=== PATIENT | female | born 1970 | race Hispanic/Latino ===

== ENCOUNTER → 2024-10-13 | Day surgery (SDC) | payer OTHER ==
[~2024-10-13] MED LIST: ACCOLATE20 MG PO; FAMOTIDINE20 MG PO; FENTANYL CITRATE/PF 100MCG/2 ML INJ ONE; GABAPENTIN300 MG PO; GLUCAGON FOR INJ 1 MG VIAL ONE; HYDRALAZINE HCL 20 MG/ML VIAL ONE; HYOSCYAMINE SULFATE 0.5 MG/ML INJ ONE; LIDOCAINE HCL 2% LOCAL INJ 5 ML SDV VIAL INJ ONE; MECLIZINE HCL12.5 MG PO; METOCLOPRAMIDE HCL 10 MG/2ML VIAL ONE; MIDAZOLAM HCL 2 MG/2 ML VIAL ONE; PROPOFOL IV EMULSION 10 MG/ML 20 ML VIAL ONE; PROPOFOL IV EMULSION 50 ML IV ONE; ULTRAM 50MG50 MG PO; VENTOLIN HFA18 GM INH; VIT D PO
[2024-10-13] MEDS: LACTATED RINGER'S 1,000 ML ONE (07:07)
[2024-10-13 09:40] VITALS: BP 133/83; PULSE 92; RESP 17; TEMP 98.4; O2SAT 96
== END | disposition home or self-care (01) ==
LOC: OR 06:21 → EDSEX 07:30
PROVIDERS: ATTEND Internal Medicine Gastroenterology
DX: K20.90 Esophagitis, unspecified without bleeding (principal); K22.2 Esophageal obstruction; K44.9 Diaphragmatic hernia without obstruction or gangrene; K29.70 Gastritis, unspecified, without bleeding; K63.5 Polyp of colon; K57.30 Diverticulosis of large intestine without perforation or abscess without bleeding; K64.8 Other hemorrhoids; J45.909 Unspecified asthma, uncomplicated; E66.01 Morbid (severe) obesity due to excess calories; Z01.810 Encounter for preprocedural cardiovascular examination
CPT/HCPCS: 43239; 43450; 45385; 93005; J0360; J1610; J1980; J2003; J2250; J2470; J2704 ×2; J2765; J3010; J7121; 45378

== ENCOUNTER 2024-11-07 17:13 | Emergency (ER) | payer OTHER ==
[~2024-11-07] VITALS: Ht 157.5 cm; Wt 100.7 kg
[~2024-11-07 17:13] MED LIST changes: -FENTANYL CITRATE/PF 100MCG/2 ML INJ ONE; -GLUCAGON FOR INJ 1 MG VIAL ONE; -HYDRALAZINE HCL 20 MG/ML VIAL ONE; -HYOSCYAMINE SULFATE 0.5 MG/ML INJ ONE; -LIDOCAINE HCL 2% LOCAL INJ 5 ML SDV VIAL INJ ONE; -METOCLOPRAMIDE HCL 10 MG/2ML VIAL ONE; -MIDAZOLAM HCL 2 MG/2 ML VIAL ONE; -PROPOFOL IV EMULSION 10 MG/ML 20 ML VIAL ONE; -PROPOFOL IV EMULSION 50 ML IV ONE
[2024-11-07 18:53] VITALS: PULSE 88; RESP 19; TEMP 98.5
[2024-11-07 19:12] LABS: BASOPHILS % 0.5 % (0.0-1.0); EOSINOPHILS % 2.8 % (0.0-6.0); LYMPHOCYTES % 30.9 % (18.0-39.1); MONOCYTES % 6.3 % (4.4-11.3); NEUTROPHILS % 59.4 % (38.7-80.0); RED CELL DISTRIBUTION WIDTH 14.1 % (11.7-14.4)
[2024-11-07] MEDS ORDERED: ONDANSETRON HCL INJ 2MG/ML 2ML 2 MG/ML VIAL IV PRN (19:15)
[2024-11-07 19:28] LABS: EST GLOMERULAR FILTRATION RATE 88.0 ML/MIN (>=60)
[2024-11-07] MEDS: SODIUM CHLORIDE 0.9% 1000ML 1,000 ML IV STA (19:47)
[2024-11-07] MEDS: DICYCLOMINE HCL 20 MG/2 ML VIAL IM ONE (19:48)
[2024-11-07] MEDS: KETOROLAC TROMETHAMINE 30 MG/ML VIAL IV STA (19:48)
[2024-11-07 19:51] LABS: LEUKOCYTE ESTERASE ,URINE NEGATIVE (NEGATIVE); PROTEIN,URINE DIPSTICK NEGATIVE (NEGATIVE); URINE UROBILINOGEN 0.2 mg/dL (0.2 - 1)
[2024-11-07] MEDS ORDERED: IOPAMIDOL 370 MG/ML 100 ML INFUS..BTL INJ ONE (20:02)
[2024-11-07] MEDS ORDERED: DICYCLOMINE HCL20 MG PO (22:21)
[2024-11-07 22:37] VITALS: BP 123/81; PULSE 65; RESP 16; TEMP 98.4; O2SAT 97
== END 2024-11-07 22:55 | disposition home or self-care (01) ==
LOC: ER 19:05
DX: R10.30 Lower abdominal pain, unspecified (principal); R19.7 Diarrhea, unspecified; R11.0 Nausea; J45.909 Unspecified asthma, uncomplicated; E66.9 Obesity, unspecified; Z87.19 Personal history of other diseases of the digestive system
CPT/HCPCS: 36415; 74177; 80053; 81001; 83690; 85025; 99284; J0500; J1885; J7030; Q9967